=== PATIENT | female | born 1975 | race Caucasian/White ===

== ENCOUNTER → 2016-09-28 | Outpatient (CLI) | payer OTHER ==
[~2016-09-28] MED LIST: ATOR1TAB19 PO; BENA25CA2 PO; LEVO88TA3 PO; LEXA1TAB PO; PRED10TA PO; PREV30CA11 PO; RIZA10TA2 PO; VALI2TAB PO
[2016-09-28 20:22] LABS: BASO % 0.5 % (0.0-1.0); EOS # 0.2 K/mm3 (0.0-0.50); EOS % 2.1 % (0.0-3.0); LYMPH # 3.1 K/mm3 (1.5-4.5); LYMPH % 38.7 % (24.0-44.0); MEAN CORPUSCULAR HEMOGLOBIN 26.5 pg (27.0-33.0); MEAN CORPUSCULAR HGB CONC 31.1 g/dl (32.0-36.5); MONO # 0.4 K/mm3 (0.0-0.8); MONO % 5.1 % (0.0-5.0); NEUTROPHILS # 4.1 K/mm3 (1.8-7.7); NEUTROPHILS % 52.2 % (36.0-66.0); RED CELL DISTRIBUTION WIDTH 14.8 % (11.5-14.5); WHITE BLOOD COUNT 7.8 K/mm3 (4.0-10.0)
== END ==
LOC: M WUC 15:50
PROVIDERS: ATTEND Internal Medicine
DX: J84.9 Interstitial pulmonary disease, unspecified (principal)

== ENCOUNTER → 2017-02-09 | Outpatient (CLI) | payer OTHER ==
[~2017-02-09] MED LIST changes: +E-Z-GAS II EFFERVESCENT PACKET (SODIUM BICARB./CITRIC ACID/SIMETHICONE) As Ordered ONE; +E-Z-HD 98% w/w 340GM SUSP BTL As Ordered ONE; +E-Z-PAQUE 96% w/w SUSP 176GM BTL As Ordered ONE; +PREV1CAP PO; -PREV30CA11 PO
--- NOTE | 2017-02-09 19:41 | REP ---
Esophagram The procedure was performed under the direct supervision of Dr. Hammond. The images were reviewed with Dr. Hammond. A single view PA chest x-ray is submitted as a billing spec film. There is no change compared to a previous chest x-ray performed on 08/07/2015. Liquid barium and gas producing granules were given in the erect position as well as liquid barium in the prone oblique positions in order to perform a double contrast esophagram examination. The oral and pharyngeal stages of deglutition are unremarkable. Esophageal transport is prompt and efficient and there is no esophagitis, stricture, or mucosal ring. Is a sliding-type hiatal hernia present. Gastroesophageal reflux is not demonstrated on this examination. Impression: There is a sliding type hiatal hernia present. Otherwise unremarkable double contrast esophagram examination. One minute and 30 seconds of fluoro time was utilized for this procedure. Reviewed by ERMELINDA Berkowitz 02/09/2017 04:10 PSigned by Lars Hammond MD 02/09/2017 07:31 P
== END ==
LOC: M RAD 08:13
PROVIDERS: ATTEND Physician Assistant
DX: R13.10 Dysphagia, unspecified (principal); M94.1 Relapsing polychondritis; K44.9 Diaphragmatic hernia without obstruction or gangrene

== ENCOUNTER 2017-03-26 13:05 | Emergency (ER) | payer OTHER ==
[~2017-03-26] VITALS: Ht 154.9 cm; Wt 54.5 kg
[~2017-03-26 13:05] MED LIST changes: -E-Z-GAS II EFFERVESCENT PACKET (SODIUM BICARB./CITRIC ACID/SIMETHICONE) As Ordered ONE; -E-Z-HD 98% w/w 340GM SUSP BTL As Ordered ONE; -E-Z-PAQUE 96% w/w SUSP 176GM BTL As Ordered ONE
[2017-03-26] MEDS ORDERED: REXU1TAB PO (13:26)
[2017-03-26] MEDS ORDERED: RIZA10TA4 PO (13:26)
[2017-03-26] MEDS ORDERED: NS 1,000 ML IV ONE (15:30)
[2017-03-26 16:03] LABS: BASO # 0.1 10^3/uL (0.0-0.2); BASO % 0.4 % (0.0-1.0); EOS # 0.1 10^3/uL (0.0-0.50); EOS % 1.1 % (0.0-3.0); IMMATURE GRANULOCYTE % 0.2 % (0-0); LYMPH # 3.9 10^3/uL (1.5-4.5); LYMPH % 31.3 % (24.0-44.0); MEAN CORPUSCULAR HEMOGLOBIN 26.5 pg (27.0-33.0); MEAN CORPUSCULAR HGB CONC 30.9 g/dl (32.0-36.5); MEAN CORPUSCULAR VOLUME 85.8 fl (80.0-96.0); MONO # 0.7 10^3/uL (0.0-0.8); MONO % 5.3 % (0.0-5.0); NEUTROPHILS # 7.6 10^3/uL (1.8-7.7); NEUTROPHILS % 61.7 % (36.0-66.0); PLATELET COUNT, AUTOMATED 337 10^3/uL (150-450); RED CELL DISTRIBUTION WIDTH 15.3 % (11.5-14.5); WHITE BLOOD COUNT 12.3 10^3/uL (4.0-10.0)
--- NOTE | 2017-03-26 16:06 | REP ---
Clinical: Dysphasia . Comparison: 08/07/2015 . Technique: PA and lateral. Findings: The mediastinum and cardiac silhouette are normal. The lung hein are clear and without acute consolidation, effusion, or pneumothorax. The skeletal structures are intact and normal. Impression: 1. No acute cardiopulmonary process. Signed by Amanuel Ojeda MD 03/26/2017 03:57 P
[2017-03-26] MEDS ORDERED: DIAZ2TAB PO (16:09)
[2017-03-26] MEDS ORDERED: VENTAER INH (16:09)
[2017-03-26] MEDS ORDERED: PRED1TABL PO (16:09)
[2017-03-26 16:27] LABS: ALBUMIN 4.9 GM/DL (3.2-5.2); ALBUMIN/GLOBULIN RATIO 1.29 (1.00-1.93); BILIRUBIN,DIRECT 0.1 MG/DL (0.0-0.2); BILIRUBIN,TOTAL 0.4 MG/DL (0.2-1.0); CREATININE FOR GFR 1.22 MG/DL (0.55-1.02); POTASSIUM SERUM 4.7 MEQ/L (3.5-5.1); TOTAL PROTEIN 8.7 GM/DL (6.4-8.2)
--- NOTE | 2017-03-26 17:54 | ED PDOC ---
Post-Departure Follow-Up SPOKE WITH BOTH DR. STRINGER (GI) AND DR. MARTINEZ (HOSPITALIST) REGARDING POSSIBLE ADMISSION FOR THIS PT. DR. MARTINEZ CAME TO EVALUATE PT IN THE ED AT THIS TIME AND SPOKE WITH PT REGARDING SYMPTOMS AND POTENTIAL TREATMENTS. PT STATING SHE PREFERS TO FOLLOW UP WITH THE GROUP IN [place], [place], WITH WHICH SHE HAS AN APPOINTMENT WITH ON March. STATES SHE IS ESTABLISHING WITH THEM PER REQUEST OF HER GI SPECIALIST, DR VIRGEN IN [place]. ADVISED THAT PT IS STABLE AND CAN DRIVE TO [facility] AND BE SEEN IN THEIR ED FOR FURTHER WORK UP FOR THIS CHRONIC ISSUE. PT IN NAD AT THIS TIME AND IS IN UNDERSTANDING AND AGREEMENT WITH TX PLAN. THIS NANOELECTRONICS ENGINEER CALLED AND SPOKE WITH THE ADULT TRIAGE NURSE IN THEIR ED AND MADE THEM AWARE OF THE SITUATION. PROVIDED THEM WITH [phone] PHONE NUMBER TO CALL THIS DEPT BACK WITH ANY QUESTIONS WHEN PT ARRIVES. MARGY KING PA-C Mar 26, 2017 17:54
[2017-03-26 18:08] VITALS: BP 117/69
== END 2017-03-26 18:12 | disposition home or self-care (01) ==
LOC: M ED 13:05
DX: E86.0 Dehydration (principal); R13.10 Dysphagia, unspecified; M94.9 Disorder of cartilage, unspecified; E03.9 Hypothyroidism, unspecified; F41.9 Anxiety disorder, unspecified; F32.9 Major depressive disorder, single episode, unspecified; Z88.5 Allergy status to narcotic agent; Z88.4 Allergy status to anesthetic agent; Z88.8 Allergy status to other drugs, medicaments and biological substances; F17.210 Nicotine dependence, cigarettes, uncomplicated; Z79.51 Long term (current) use of inhaled steroids; Z79.899 Other long term (current) drug therapy; Z79.52 Long term (current) use of systemic steroids

== ENCOUNTER → 2017-05-13 | Outpatient (CLI) | payer OTHER ==
[2017-05-13 16:59] LABS: BASO % 0.2 % (0.0-1.0); EOS # 0.1 10^3/uL (0.0-0.50); EOS % 1.3 % (0.0-3.0); HEMATOCRIT 44.3 % (36.0-47.0); HEMOGLOBIN 13.8 g/dl (12.0-16.0); IMMATURE GRANULOCYTE % 0.3 % (0-0); LYMPH % 17.8 % (24.0-44.0); MEAN CORPUSCULAR HEMOGLOBIN 27.9 pg (27.0-33.0); MEAN CORPUSCULAR HGB CONC 31.2 g/dl (32.0-36.5); MEAN CORPUSCULAR VOLUME 89.5 fl (80.0-96.0); MONO # 0.4 10^3/uL (0.0-0.8); MONO % 3.8 % (0.0-5.0); NEUTROPHILS # 8.4 10^3/uL (1.8-7.7); NEUTROPHILS % 76.6 % (36.0-66.0); PLATELET COUNT, AUTOMATED 327 10^3/uL (150-450); RED BLOOD COUNT 4.95 10^6/uL (4.00-5.40); RED CELL DISTRIBUTION WIDTH 16.6 % (11.5-14.5)
[2017-05-13 17:52] LABS: ERYTHROCYTE SEDIMENTATION RATE 36 mm/hr (0-20)
[2017-05-13 18:14] LABS: ALBUMIN 4.3 GM/DL (3.2-5.2); ALKALINE PHOSPHATASE 111 U/L (45-117); ALT/SGPT 70 U/L (12-78); ANION GAP 6 MEQ/L (8-16); AST/SGOT 39 U/L (7-37); BILIRUBIN,TOTAL 0.3 MG/DL (0.2-1.0); BLOOD UREA NITROGEN 16 MG/DL (7-18); C REACTIVE PROTEIN QUANTITATIV < 0.30 MG/DL (0.00-0.30); CALCIUM LEVEL 10.3 MG/DL (8.5-10.1); CARBON DIOXIDE LEVEL 29 MEQ/L (21-32); CHLORIDE LEVEL 103 MEQ/L (98-107); CPK CREATINE PHOSPHOKINASE 31 U/L (26-192); GLOMERULAR FILTRATION RATE > 60.0 (>58); GLUCOSE, FASTING 85 MG/DL (70-105); POTASSIUM SERUM 4.8 MEQ/L (3.5-5.1); SODIUM LEVEL 138 MEQ/L (136-145); TOTAL PROTEIN 8.2 GM/DL (6.4-8.2)
== END ==
LOC: M WUC 11:58
DX: M94.1 Relapsing polychondritis (principal); Z79.899 Other long term (current) drug therapy
CPT/HCPCS: 82550

== ENCOUNTER 2017-06-18 10:48 | Outpatient (RCR) | payer OTHER | END 2017-06-23 | LOC: M ST 10:48 | DX: Z51.89 Encounter for other specified aftercare (principal); R13.10 Dysphagia, unspecified ==

== ENCOUNTER 2017-06-20 14:02 | Emergency (ER) | payer OTHER ==
[2017-06-20] MEDS ORDERED: HYDROmorphone 2 MG TAB XX (15:15)
[2017-06-20 15:38] LABS: BASO % 0.4 % (0.0-1.0); EOS # 0.3 10^3/uL (0.0-0.50); EOS % 2.9 % (0.0-3.0); HEMATOCRIT 42.9 % (36.0-47.0); HEMOGLOBIN 14.4 g/dl (12.0-16.0); IMMATURE GRANULOCYTE % 0.3 % (0-3.0); LYMPH # 2.7 10^3/uL (1.5-4.5); LYMPH % 24.1 % (24.0-44.0); MEAN CORPUSCULAR HEMOGLOBIN 29.8 pg (27.0-33.0); MEAN CORPUSCULAR HGB CONC 33.6 g/dl (32.0-36.5); MEAN CORPUSCULAR VOLUME 88.6 fl (80.0-96.0); MONO # 0.7 10^3/uL (0.0-0.8); MONO % 6.2 % (0.0-5.0); NEUTROPHILS # 7.4 10^3/uL (1.8-7.7); NEUTROPHILS % 66.1 % (36.0-66.0); PLATELET COUNT, AUTOMATED 265 10^3/uL (150-450); RED BLOOD COUNT 4.84 10^6/uL (4.00-5.40); WHITE BLOOD COUNT 11.2 10^3/uL (4.0-10.0)
[2017-06-20] MEDS: NS 1,000 ML IV (15:43)
[2017-06-20] MEDS: HYDROmorphone HCL 1 MG/ML SYRINGE (J1170) IV ×2 (15:43→18:25)
[2017-06-20 16:01] LABS: ALBUMIN 4.1 GM/DL (3.2-5.2); ALBUMIN/GLOBULIN RATIO 1.24 (1.00-1.93); ALKALINE PHOSPHATASE 103 U/L (45-117); ALT/SGPT 79 U/L (12-78); AMYLASE 131 U/L (25-115); ANION GAP 8 MEQ/L (8-16); AST/SGOT 55 U/L (7-37); BILIRUBIN,DIRECT 0.1 MG/DL (0.0-0.2); BILIRUBIN,TOTAL 0.4 MG/DL (0.2-1.0); BLOOD UREA NITROGEN 17 MG/DL (7-18); CALCIUM LEVEL 9.7 MG/DL (8.5-10.1); CARBON DIOXIDE LEVEL 28 MEQ/L (21-32); CHLORIDE LEVEL 103 MEQ/L (98-107); CREATININE FOR GFR 0.75 MG/DL (0.55-1.30); GLOMERULAR FILTRATION RATE > 60.0 (>58); GLUCOSE, FASTING 86 MG/DL (70-100); LIPASE 360 U/L (73-393); POTASSIUM SERUM 4.3 MEQ/L (3.5-5.1); SODIUM LEVEL 139 MEQ/L (136-145); TOTAL PROTEIN 7.4 GM/DL (6.4-8.2)
[2017-06-20] MEDS ORDERED: ISOVUE-370 76% 100ML VIAL (Q9967) As Ordered (16:07)
[2017-06-20] MEDS: ONDANSETRON 4MG/2ML VIAL (J2405) IV (18:25)
[2017-06-20 18:44] LABS: KETONE, URINE AUTO RFX NEGATIVE (NEGATIVE); LEUKOCYTE ESTERASE UR AUTO RFX NEGATIVE (NEGATIVE); NITRITE, URINE AUTO RFX NEGATIVE (NEGATIVE); RBC, URINE AUTO RFX 1 /HPF (0-3); SQUAM EPITHELIAL CELL UR AURFX 2 /HPF (0-6); WBC, URINE AUTO RFX 1 /HPF (0-3)
[2017-06-20] MEDS: ONDANSETRON 4 MG ORAL DISINTEGRATING TAB (S0181) PO (19:21)
[2017-06-20] MEDS: HYDROmorphone 2 MG TAB PO (19:21)
[2017-06-20 20:20] LABS: SPECIFIC GRAVITY UR AUTO RFX >1.060 (1.002-1.035)
== END 2017-06-20 19:32 | disposition home or self-care (01) ==
LOC: M ED 14:02
DX: R10.9 Unspecified abdominal pain (principal); R07.9 Chest pain, unspecified; K75.9 Inflammatory liver disease, unspecified; D72.829 Elevated white blood cell count, unspecified; R11.2 Nausea with vomiting, unspecified; R94.31 Abnormal electrocardiogram [ECG] [EKG]; R47.02 Dysphasia; R94.5 Abnormal results of liver function studies; K59.8 Other specified functional intestinal disorders; Z93.2 Ileostomy status; Z93.1 Gastrostomy status; Z79.899 Other long term (current) drug therapy; Z88.5 Allergy status to narcotic agent; Z88.8 Allergy status to other drugs, medicaments and biological substances
CPT/HCPCS: J1170

== ENCOUNTER 2017-06-29 13:46 | Emergency (ER) | payer OTHER ==
[2017-06-29] MEDS: HYDROmorphone HCL 1 MG/ML SYRINGE (J1170) IV ×2 (15:58→16:58)
[2017-06-29] MEDS: ONDANSETRON 4MG/2ML VIAL (J2405) IV (15:58)
[2017-06-29] MEDS: NS 1,000 ML IV (15:58)
[2017-06-29 16:08] LABS: BASO % 0.3 % (0.0-1.0); EOS # 0.3 10^3/uL (0.0-0.50); EOS % 3.3 % (0.0-3.0); HEMATOCRIT 43.5 % (36.0-47.0); HEMOGLOBIN 14.5 g/dl (12.0-16.0); IMMATURE GRANULOCYTE % 0.2 % (0-3.0); LYMPH # 2.6 10^3/uL (1.5-4.5); LYMPH % 29.6 % (24.0-44.0); MEAN CORPUSCULAR HEMOGLOBIN 30.5 pg (27.0-33.0); MEAN CORPUSCULAR HGB CONC 33.3 g/dl (32.0-36.5); MEAN CORPUSCULAR VOLUME 91.4 fl (80.0-96.0); MONO # 0.6 10^3/uL (0.0-0.8); MONO % 6.5 % (0.0-5.0); NEUTROPHILS # 5.3 10^3/uL (1.8-7.7); NEUTROPHILS % 60.1 % (36.0-66.0); PLATELET COUNT, AUTOMATED 268 10^3/uL (150-450); RED BLOOD COUNT 4.76 10^6/uL (4.00-5.40); RED CELL DISTRIBUTION WIDTH 14.6 % (11.5-14.5); WHITE BLOOD COUNT 8.9 10^3/uL (4.0-10.0)
[2017-06-29 16:26] LABS: CONTROL LINE HCG INT CTR LINE PRESENT; HCG, SERUM QUALITATIVE NEGATIVE (NEGATIVE)
[2017-06-29 16:30] LABS: ALBUMIN/GLOBULIN RATIO 1.08 (1.00-1.93); ALKALINE PHOSPHATASE 113 U/L (45-117); ALT/SGPT 89 U/L (12-78); AMYLASE 119 U/L (25-115); ANION GAP 6 MEQ/L (8-16); AST/SGOT 48 U/L (7-37); BILIRUBIN,DIRECT 0.1 MG/DL (0.0-0.2); BILIRUBIN,TOTAL 0.4 MG/DL (0.2-1.0); BLOOD UREA NITROGEN 11 MG/DL (7-18); CALCIUM LEVEL 9.8 MG/DL (8.5-10.1); CARBON DIOXIDE LEVEL 29 MEQ/L (21-32); CHLORIDE LEVEL 105 MEQ/L (98-107); CREATININE FOR GFR 0.71 MG/DL (0.55-1.30); GLOMERULAR FILTRATION RATE > 60.0 (>58); GLUCOSE, FASTING 87 MG/DL (70-100); LIPASE 296 U/L (73-393); POTASSIUM SERUM 4.2 MEQ/L (3.5-5.1); SODIUM LEVEL 140 MEQ/L (136-145); TOTAL PROTEIN 7.7 GM/DL (6.4-8.2)
[2017-06-29 16:31] LABS: LACTIC ACID SEPSIS PROTOCOL 1.8 MMOL/L (0.4-2.0)
[2017-06-29] MEDS ORDERED: ISOVUE-370 76% 100ML VIAL (Q9967) As Ordered (16:35)
[2017-06-29] MEDS: GASTROGRAFIN SOLUTION 30ML PO ×2 (16:49→17:15)
== END 2017-06-29 18:50 | disposition home or self-care (01) ==
LOC: M ED 13:46
DX: B86 Scabies (principal); R10.9 Unspecified abdominal pain; R11.0 Nausea; R19.7 Diarrhea, unspecified; Z93.1 Gastrostomy status; F32.9 Major depressive disorder, single episode, unspecified; K21.9 Gastro-esophageal reflux disease without esophagitis; K58.9 Irritable bowel syndrome, unspecified; R13.10 Dysphagia, unspecified; Z79.899 Other long term (current) drug therapy; Z88.5 Allergy status to narcotic agent; Z88.8 Allergy status to other drugs, medicaments and biological substances; Z88.4 Allergy status to anesthetic agent
CPT/HCPCS: J1170

== ENCOUNTER → 2017-07-05 | Outpatient (CLI) | payer OTHER ==
[2017-07-05 16:23] LABS: CPK CREATINE PHOSPHOKINASE 42 U/L (26-192); CREATININE FOR GFR 0.88 MG/DL (0.55-1.30); GLOMERULAR FILTRATION RATE > 60.0 (>58)
[2017-07-05 16:23] LABS: BLOOD UREA NITROGEN 14 MG/DL (7-18)
== END ==
LOC: M WUC 14:46
DX: R13.10 Dysphagia, unspecified (principal); G70.01 Myasthenia gravis with (acute) exacerbation; R19.7 Diarrhea, unspecified
CPT/HCPCS: 82550

== ENCOUNTER 2017-07-09 15:52 | Outpatient (RCR) | payer OTHER | END 2017-07-24 | LOC: M ST 15:52 | DX: Z51.89 Encounter for other specified aftercare (principal); R13.10 Dysphagia, unspecified ==

== ENCOUNTER → 2017-12-29 | Outpatient (CLI) | payer OTHER ==
[2017-12-29 15:32] LABS: ALBUMIN 4.2 GM/DL (3.2-5.2); ALBUMIN/GLOBULIN RATIO 1.24 (1.00-1.93); ALKALINE PHOSPHATASE 80 U/L (45-117); ALT/SGPT 91 U/L (12-78); AST/SGOT 47 U/L (7-37); BILIRUBIN,DIRECT 0.2 MG/DL (0.0-0.2); BILIRUBIN,TOTAL 0.4 MG/DL (0.2-1.0); TOTAL PROTEIN 7.6 GM/DL (6.4-8.2)
== END ==
LOC: M WUC 12:22
DX: K31.84 Gastroparesis (principal); K21.9 Gastro-esophageal reflux disease without esophagitis; I95.9 Hypotension, unspecified; R94.5 Abnormal results of liver function studies
CPT/HCPCS: 80076

== ENCOUNTER → 2017-12-29 | Outpatient (CLI) | payer OTHER ==
[2017-12-29 15:26] LABS: FREE T4 0.78 NG/DL (0.76-1.46)
== END ==
LOC: M WUC 12:25
DX: E03.9 Hypothyroidism, unspecified (principal)
CPT/HCPCS: 84443

== ENCOUNTER → 2018-01-04 | Outpatient (CLI) | payer OTHER ==
[2018-01-04 17:07] LABS: ALBUMIN 3.8 GM/DL (3.2-5.2); ALKALINE PHOSPHATASE 87 U/L (45-117); ALT/SGPT 58 U/L (12-78); ANION GAP 7 MEQ/L (8-16); AST/SGOT 42 U/L (7-37); BILIRUBIN,TOTAL 0.4 MG/DL (0.2-1.0); BLOOD UREA NITROGEN 17 MG/DL (7-18); CALCIUM LEVEL 9.7 MG/DL (8.5-10.1); CARBON DIOXIDE LEVEL 27 MEQ/L (21-32); CHLORIDE LEVEL 104 MEQ/L (98-107); CREATININE FOR GFR 1.41 MG/DL (0.55-1.30); GLOMERULAR FILTRATION RATE 43.1 (>58); GLUCOSE, FASTING 100 MG/DL (70-100); POTASSIUM SERUM 5.6 MEQ/L (3.5-5.1); SODIUM LEVEL 138 MEQ/L (136-145); TOTAL PROTEIN 7.3 GM/DL (6.4-8.2)
[2018-01-04 20:08] LABS: ALBUMIN/GLOBULIN RATIO 1.09 (1.00-1.93)
== END ==
LOC: M WUC 16:06
DX: Z79.899 Other long term (current) drug therapy (principal)
CPT/HCPCS: 80053

== ENCOUNTER → 2018-01-07 | Outpatient (CLI) | payer OTHER ==
[2018-01-07 20:32] LABS: ALBUMIN 3.9 GM/DL (3.2-5.2); ALBUMIN/GLOBULIN RATIO 1.26 (1.00-1.93); ALKALINE PHOSPHATASE 74 U/L (45-117); ALT/SGPT 69 U/L (12-78); ANION GAP 8 MEQ/L (8-16); AST/SGOT 47 U/L (7-37); BILIRUBIN,TOTAL 0.4 MG/DL (0.2-1.0); BLOOD UREA NITROGEN 14 MG/DL (7-18); CALCIUM LEVEL 9.6 MG/DL (8.5-10.1); CARBON DIOXIDE LEVEL 24 MEQ/L (21-32); CHLORIDE LEVEL 105 MEQ/L (98-107); CREATININE FOR GFR 1.25 MG/DL (0.55-1.30); GLOMERULAR FILTRATION RATE 49.6 (>58); GLUCOSE, FASTING 92 MG/DL (70-100); POTASSIUM SERUM 4.9 MEQ/L (3.5-5.1); SODIUM LEVEL 137 MEQ/L (136-145)
== END ==
LOC: M WUC 16:54
DX: Z51.81 Encounter for therapeutic drug level monitoring (principal); Z79.899 Other long term (current) drug therapy
CPT/HCPCS: 80053

== ENCOUNTER → 2018-01-07 | Outpatient (CLI) | payer OTHER ==
[2018-01-07 22:05] LABS: ANION GAP 9 MEQ/L (8-16); BLOOD UREA NITROGEN 15 MG/DL (7-18); CALCIUM LEVEL 9.3 MG/DL (8.5-10.1); CARBON DIOXIDE LEVEL 22 MEQ/L (21-32); CHLORIDE LEVEL 104 MEQ/L (98-107); CREATININE FOR GFR 1.27 MG/DL (0.55-1.30); GLOMERULAR FILTRATION RATE 48.7 (>58); GLUCOSE, FASTING 91 MG/DL (70-100); POTASSIUM SERUM 4.8 MEQ/L (3.5-5.1); SODIUM LEVEL 135 MEQ/L (136-145)
[2018-01-07 22:18] LABS: FOLATE 10.8 NG/ML (>5.4)
[2018-01-13 08:06] LABS: VITAMIN B1 LEVEL WHOLE BLOOD 145.9 nmol/L (66.5-200.0)
== END ==
LOC: M WUC 16:58
DX: K31.84 Gastroparesis (principal); E55.9 Vitamin D deficiency, unspecified
CPT/HCPCS: 82746

== ENCOUNTER → 2018-02-16 | Outpatient (CLI) | payer OTHER | LOC: M RAD 13:44 | DX: N18.3 Chronic kidney disease, stage 3 (moderate) (principal); Z93.2 Ileostomy status | CPT/HCPCS: 76775 ==

== ENCOUNTER → 2018-02-16 | Outpatient (CLI) | payer OTHER ==
[2018-02-16 14:12] LABS: BASO % 0.4 % (0.0-1.0); EOS # 0.1 10^3/uL (0.0-0.50); EOS % 0.5 % (0.0-3.0); HEMATOCRIT 39.9 % (36.0-47.0); HEMOGLOBIN 13.5 g/dl (12.0-15.5); IMMATURE GRANULOCYTE # 0.1 10^3/uL (0-0); IMMATURE GRANULOCYTE % 0.5 % (0-3.0); LYMPH # 1.6 10^3/uL (1.5-4.5); LYMPH % 15.3 % (24.0-44.0); MEAN CORPUSCULAR HEMOGLOBIN 34.4 pg (27.0-33.0); MEAN CORPUSCULAR HGB CONC 33.8 g/dl (32.0-36.5); MEAN CORPUSCULAR VOLUME 101.8 fl (80.0-96.0); MONO # 0.4 10^3/uL (0.0-0.8); MONO % 3.9 % (0.0-5.0); NEUTROPHILS # 8.1 10^3/uL (1.8-7.7); NEUTROPHILS % 79.4 % (36.0-66.0); PLATELET COUNT, AUTOMATED 371 10^3/uL (150-450); RED BLOOD COUNT 3.92 10^6/uL (4.00-5.40); RED CELL DISTRIBUTION WIDTH 15.1 % (11.5-14.5); WHITE BLOOD COUNT 10.1 10^3/uL (4.0-10.0)
[2018-02-16 15:27] LABS: ALBUMIN 3.7 GM/DL (3.2-5.2); ALBUMIN/GLOBULIN RATIO 1.28 (1.00-1.93); ALKALINE PHOSPHATASE 73 U/L (45-117); ALT/SGPT 68 U/L (12-78); ANION GAP 8 MEQ/L (8-16); AST/SGOT 50 U/L (7-37); BILIRUBIN,TOTAL 0.5 MG/DL (0.2-1.0); BLOOD UREA NITROGEN 14 MG/DL (7-18); C REACTIVE PROTEIN QUANTITATIV < 0.30 MG/DL (0.00-0.30); CALCIUM LEVEL 9.5 MG/DL (8.5-10.1); CARBON DIOXIDE LEVEL 22 MEQ/L (21-32); CHLORIDE LEVEL 110 MEQ/L (98-107); CREATININE FOR GFR 1.26 MG/DL (0.55-1.30); GLOMERULAR FILTRATION RATE 49.1 (>58); GLUCOSE, FASTING 132 MG/DL (70-100); POTASSIUM SERUM 4.5 MEQ/L (3.5-5.1); SODIUM LEVEL 140 MEQ/L (136-145); TOTAL PROTEIN 6.6 GM/DL (6.4-8.2)
== END ==
LOC: M LAB 13:47
DX: M94.1 Relapsing polychondritis (principal)
CPT/HCPCS: 80053

== ENCOUNTER → 2018-05-10 | Outpatient (CLI) | payer OTHER ==
[~2018-05-10] MED LIST changes: +DIAZ2TAB PO; +DILA2TAB6 PO; +ELIM5CRE2 TOP; +FAMO20TA PO; +HYDR1SOL PO; +MYLASUS16 PO; +PRED1TABL PO; +REXU1TAB PO; +RIZA10TA4 PO; +VENTAER INH
[2018-05-10 13:07] LABS: CALCIUM LEVEL 9.6 MG/DL (8.5-10.1); CREATININE FOR GFR 1.34 MG/DL (0.55-1.30); GLOMERULAR FILTRATION RATE 45.5 (>58); POTASSIUM SERUM 5.1 MEQ/L (3.5-5.1)
== END ==
LOC: M LAB 12:13
PROVIDERS: ATTEND Internal Medicine
DX: E87.5 Hyperkalemia (principal)

== ENCOUNTER → 2018-06-21 | Outpatient (CLI) | payer OTHER ==
[2018-06-21 19:33] LABS: BASO % 0.4 % (0.0-1.0); EOS % 0.1 % (0.0-3.0); HEMATOCRIT 43.4 % (36.0-47.0); HEMOGLOBIN 14.5 g/dl (12.0-15.5); LYMPH # 2.2 10^3/uL (1.5-4.5); LYMPH % 30.3 % (24.0-44.0); MEAN CORPUSCULAR HEMOGLOBIN 33.2 pg (27.0-33.0); MEAN CORPUSCULAR HGB CONC 33.4 g/dl (32.0-36.5); MEAN CORPUSCULAR VOLUME 99.3 fl (80.0-96.0); MONO # 0.4 10^3/uL (0.0-0.8); MONO % 4.9 % (0.0-5.0); NEUTROPHILS # 4.7 10^3/uL (1.8-7.7); PLATELET COUNT, AUTOMATED 293 10^3/uL (150-450); RED BLOOD COUNT 4.37 10^6/uL (4.00-5.40); WHITE BLOOD COUNT 7.4 10^3/uL (4.0-10.0)
[2018-06-21 20:11] LABS: ALBUMIN 4.3 GM/DL (3.2-5.2); ALT/SGPT 30 U/L (12-78); BILIRUBIN,TOTAL 0.3 MG/DL (0.2-1.0); BLOOD UREA NITROGEN 19 MG/DL (7-18); C REACTIVE PROTEIN QUANTITATIV < 0.30 MG/DL (0.00-0.30); CALCIUM LEVEL 9.5 MG/DL (8.5-10.1); CARBON DIOXIDE LEVEL 24 MEQ/L (21-32); CHLORIDE LEVEL 106 MEQ/L (98-107); CREATININE FOR GFR 1.21 MG/DL (0.55-1.30); GLOMERULAR FILTRATION RATE 51.2 (>58); GLUCOSE, FASTING 100 MG/DL (70-100); SODIUM LEVEL 137 MEQ/L (136-145); TOTAL PROTEIN 7.6 GM/DL (6.4-8.2)
== END ==
LOC: M WUC 15:34
PROVIDERS: ATTEND Internal Medicine
DX: M94.1 Relapsing polychondritis (principal)

== ENCOUNTER → 2018-07-06 | Outpatient (REF) | payer OTHER ==
[2018-07-06 13:53] LABS: INFLUENZA A AMPLIFICATION NEGATIVE (NEGATIVE); INFLUENZA B AMPLIFICATION NEGATIVE (NEGATIVE)
== END ==
LOC: M LAB REF 13:04
PROVIDERS: ATTEND Physician Assistant
DX: J11.1 Influenza due to unidentified influenza virus with other respiratory manifestations (principal)

== ENCOUNTER 2018-09-28 23:00 | Emergency (ER) | payer OTHER ==
[~2018-09-28] VITALS: Ht 154.9 cm; Wt 40.9 kg
[~2018-09-28 23:00] MED LIST changes: +PRED-351 PO; -PRED10TA PO
[2018-09-28] MEDS ORDERED: GASTROGRAFIN SOLUTION 30ML (Q9963) As Ordered ONE (23:29)
[2018-09-28] MEDS ORDERED: GASTROGRAFIN SOLUTION 30ML (Q9963) FT ONE (23:30)
[2018-09-29 00:28] VITALS: BP 110/62
--- NOTE | 2018-09-29 00:41 | REP ---
Clinical: Feeding tube placement. Technique: Single supine view of the abdomen and pelvis after the administration of gastrographin the feeding tube. Findings: Contrast instilled via a feeding tube properly outlines the gastric mucosa without evidence for extravasation. Bowel gas pattern is nonspecific. Colonoscopy overlies the right mid abdomen. No organomegaly. Skeletal structures are intact. No abnormal calcifications appreciated. Impression: Feeding tube in satisfactory position. Nonspecific bowel gas pattern. Electronically Signed by Amanuel Ojeda MD 09/29/2018 12:33 A
== END 2018-09-29 00:32 | disposition home or self-care (01) ==
LOC: M ED 23:00
DX: K94.20 Gastrostomy complication, unspecified (principal); F33.9 Major depressive disorder, recurrent, unspecified; F41.9 Anxiety disorder, unspecified; E03.9 Hypothyroidism, unspecified; K21.9 Gastro-esophageal reflux disease without esophagitis; K58.9 Irritable bowel syndrome, unspecified; J84.9 Interstitial pulmonary disease, unspecified; Z79.899 Other long term (current) drug therapy; Z79.890 Hormone replacement therapy; Z88.5 Allergy status to narcotic agent

== ENCOUNTER → 2018-11-11 | Outpatient (CLI) | payer OTHER ==
[~2018-11-11] MED LIST changes: +E-Z-PAQUE 96% w/w SUSP 176GM BTL As Ordered ONE
--- NOTE | 2018-11-14 07:59 | REP ---
Examination Requested: SBFT Reason For Exam: Intussusception, nausea Small Bowel Follow Through The procedure was performed by ERMELINDA Morales, under the direct supervision of Dr. Aguirre. The images were reviewed with Dr. Aguirre. The scout professional sports film shows no organomegaly or pathological masses. The intestinal gas pattern appears normal. The barium was administered and the barium column was followed through the small bowel to the ileostomy. Small bowel transit time was approximately 100 minutes. During fluoroscopy gentle palpation shows all loops are freely mobile and pliable. There are no fixed or angulated loops. The small bowel mucosal pattern is normal in course and caliber. There is no transition to suggest a partial small-bowel obstruction or stricture. Impression: 1. Unremarkable small bowel follow-through to the level of the stoma. 0.5 minutes of fluoroscopy time was utilized for this procedure. Some fluoroscopic images are performed with last image hold technology. These images require no additional radiation. Reviewed by ERMELINDA Mohamud 11/11/2018 04:53 P Electronically Signed by Lars Aguirre MD 11/14/2018 07:51 A
== END ==
LOC: M RAD 08:12
PROVIDERS: ATTEND Nurse Practitioner
DX: K56.1 Intussusception (principal)

== ENCOUNTER → 2019-01-13 | Outpatient (CLI) | payer OTHER ==
[~2019-01-13] MED LIST changes: -E-Z-PAQUE 96% w/w SUSP 176GM BTL As Ordered ONE
[2019-01-13 13:43] LABS: BASO % 0.7 % (0.0-1.0); EOS # 0.2 10^3/uL (0.0-0.5); EOS % 4.9 % (0.0-3.0); HEMATOCRIT 30.1 % (36.0-47.0); HEMOGLOBIN 9.8 g/dl (12.0-15.5); LYMPH # 1.2 10^3/uL (1.5-5.0); LYMPH % 25.8 % (24.0-44.0); MEAN CORPUSCULAR HEMOGLOBIN 33.8 pg (27.0-33.0); MEAN CORPUSCULAR HGB CONC 32.6 g/dl (32.0-36.5); MEAN CORPUSCULAR VOLUME 103.8 fl (80.0-96.0); MONO # 0.5 10^3/uL (0.0-0.8); MONO % 10.6 % (0.0-5.0); NEUTROPHILS # 2.6 10^3/uL (1.5-8.5); NEUTROPHILS % 57.6 % (36.0-66.0); PLATELET COUNT, AUTOMATED 242 10^3/uL (150-450); WHITE BLOOD COUNT 4.5 10^3/uL (4.0-10.0)
== END ==
LOC: M LAB 13:22
PROVIDERS: ATTEND Internal Medicine
DX: D72.819 Decreased white blood cell count, unspecified (principal)

== ENCOUNTER → 2019-01-16 | Outpatient (CLI) | payer OTHER ==
[2019-01-16 14:56] LABS: BASO % 0.8 % (0.0-1.0); EOS # 0.2 10^3/uL (0.0-0.5); EOS % 5.6 % (0.0-3.0); HEMATOCRIT 33.6 % (36.0-47.0); HEMOGLOBIN 10.9 g/dl (12.0-15.5); LYMPH # 1.6 10^3/uL (1.5-5.0); LYMPH % 41.1 % (24.0-44.0); MEAN CORPUSCULAR HEMOGLOBIN 34.5 pg (27.0-33.0); MEAN CORPUSCULAR HGB CONC 32.4 g/dl (32.0-36.5); MEAN CORPUSCULAR VOLUME 106.3 fl (80.0-96.0); MONO # 0.3 10^3/uL (0.0-0.8); MONO % 7.6 % (0.0-5.0); NEUTROPHILS # 1.8 10^3/uL (1.5-8.5); NEUTROPHILS % 44.6 % (36.0-66.0); PLATELET COUNT, AUTOMATED 246 10^3/uL (150-450); RED BLOOD COUNT 3.16 10^6/uL (4.00-5.40); WHITE BLOOD COUNT 3.9 10^3/uL (4.0-10.0)
== END ==
LOC: M LAB 14:34
PROVIDERS: ATTEND Internal Medicine
DX: D72.819 Decreased white blood cell count, unspecified (principal)

== ENCOUNTER → 2019-02-07 | Outpatient (CLI) | payer OTHER ==
[~2019-02-07] MED LIST changes: -RIZA10TA4 PO; +RIZA10TA58 PO
[2019-02-07 11:15] LABS: CREATININE FOR GFR 1.17 MG/DL (0.55-1.30); GLOMERULAR FILTRATION RATE 53.3 (>58)
== END ==
LOC: M LAB 09:39
PROVIDERS: ATTEND Psychiatry & Neurology Neurology
DX: I10 Essential (primary) hypertension (principal)

== ENCOUNTER → 2019-05-19 | Outpatient (CLI) | payer OTHER ==
[2019-05-19 13:09] LABS: BASO % 0.5 % (0.0-1.0); EOS # 0.1 10^3/uL (0.0-0.5); EOS % 1.9 % (0.0-3.0); HEMATOCRIT 38.5 % (36.0-47.0); HEMOGLOBIN 12.8 g/dl (12.0-15.5); LYMPH # 1.6 10^3/uL (1.5-5.0); LYMPH % 43.6 % (24.0-44.0); MEAN CORPUSCULAR HEMOGLOBIN 32.8 pg (27.0-33.0); MEAN CORPUSCULAR HGB CONC 33.2 g/dl (32.0-36.5); MEAN CORPUSCULAR VOLUME 98.7 fl (80.0-96.0); MONO # 0.3 10^3/uL (0.0-0.8); MONO % 7.7 % (0.0-5.0); NEUTROPHILS # 1.7 10^3/uL (1.5-8.5); NEUTROPHILS % 46.3 % (36.0-66.0); PLATELET COUNT, AUTOMATED 244 10^3/uL (150-450); WHITE BLOOD COUNT 3.8 10^3/uL (4.0-10.0)
[2019-05-19 13:32] LABS: ALBUMIN 4.5 GM/DL (3.2-5.2); BILIRUBIN,TOTAL 0.4 MG/DL (0.2-1.0); CREATININE FOR GFR 1.34 MG/DL (0.55-1.30); GLOMERULAR FILTRATION RATE 45.3 (>58); POTASSIUM SERUM 4.3 MEQ/L (3.5-5.1); TOTAL PROTEIN 8.3 GM/DL (6.4-8.2)
== END ==
LOC: M LAB 12:21
PROVIDERS: ATTEND Internal Medicine
DX: M94.1 Relapsing polychondritis (principal)

== ENCOUNTER → 2019-05-19 | Outpatient (CLI) | payer OTHER ==
[2019-05-19 13:42] LABS: ALBUMIN 4.5 GM/DL (3.2-5.2); ALT/SGPT 35 U/L (12-78); BILIRUBIN,TOTAL 0.6 MG/DL (0.2-1.0); BLOOD UREA NITROGEN 26 MG/DL (7-18); CALCIUM LEVEL 10.2 MG/DL (8.5-10.1); CARBON DIOXIDE LEVEL 25 MEQ/L (21-32); CHLORIDE LEVEL 109 MEQ/L (98-107); CREATININE FOR GFR 1.34 MG/DL (0.55-1.30); GLOMERULAR FILTRATION RATE 45.3 (>58); GLUCOSE, FASTING 86 MG/DL (70-100); POTASSIUM SERUM 4.1 MEQ/L (3.5-5.1); SODIUM LEVEL 142 MEQ/L (136-145); THYROID STIMULATING HORMONE 0.038 uIU/ML (0.358-3.740); TOTAL PROTEIN 8.3 GM/DL (6.4-8.2)
[2019-05-19 13:43] LABS: FOLATE > 24.0 NG/ML; VITAMIN B12 LEVEL 1080 PG/ML
== END ==
LOC: M LAB 12:15
PROVIDERS: ATTEND Psychiatry & Neurology Neurology
DX: E23.7 Disorder of pituitary gland, unspecified (principal)

== ENCOUNTER 2019-07-10 14:36 | Emergency (ER) | payer OTHER ==
[~2019-07-10] VITALS: Ht 154.9 cm; Wt 41.9 kg
[2019-07-10] MEDS ORDERED: QUET200T2 (14:45)
[2019-07-10] MEDS ORDERED: REXU1TAB2 (14:45)
[2019-07-10] MEDS ORDERED: DRON1CAP3 (14:45)
[2019-07-10] MEDS ORDERED: HYDR50TA70 (14:45)
[2019-07-10] MEDS ORDERED: ALPR1TAB3 (14:45)
[2019-07-10] MEDS ORDERED: AZAT50TA2 (14:45)
[2019-07-10] MEDS ORDERED: GASTROGRAFIN SOLUTION 30ML (Q9963) PO STA (17:21)
[2019-07-10 18:21] VITALS: BP 132/87
--- NOTE | 2019-07-10 19:12 | REP ---
KUB ABDOMEN: KUB film of abdomen performed following injection of diluted Gastrografin into the stomach through the gastrostomy tube. The gastrostomy tube is in the stomach with Gastrografin material seen within the lumen of the stomach. No leakage is seen in the perigastric region. No dilated bowel loops are seen. Metallic clips are seen in the right upper quadrant. Electronically Signed by Lars Hammond MD 07/10/2019 07:19 P
== END 2019-07-10 18:27 | disposition home or self-care (01) ==
LOC: M ED 14:36
DX: K94.29 Other complications of gastrostomy (principal); R13.10 Dysphagia, unspecified; K58.9 Irritable bowel syndrome, unspecified; M94.8X9 Other specified disorders of cartilage, unspecified sites; J84.9 Interstitial pulmonary disease, unspecified; F41.9 Anxiety disorder, unspecified; F32.9 Major depressive disorder, single episode, unspecified; E07.9 Disorder of thyroid, unspecified; D44.3 Neoplasm of uncertain behavior of pituitary gland; Z88.8 Allergy status to other drugs, medicaments and biological substances; Z88.5 Allergy status to narcotic agent; Z88.4 Allergy status to anesthetic agent; Z79.899 Other long term (current) drug therapy
CPT/HCPCS: 43762; 74018; 99283; Q9963

== ENCOUNTER → 2019-07-19 | Outpatient (CLI) | payer OTHER ==
[~2019-07-19] MED LIST changes: +ALPR1TAB3; +AZAT50TA2; +DRON1CAP3; +HYDR50TA70; +QUET200T2; +REXU1TAB2
[2019-07-19 13:56] LABS: BASO % 0.9 % (0.0-1.0); EOS % 1.3 % (0.0-3.0); HEMATOCRIT 39.8 % (36.0-47.0); HEMOGLOBIN 13.4 g/dl (12.0-15.5); LYMPH # 1.2 10^3/uL (1.5-5.0); LYMPH % 36.4 % (24.0-44.0); MEAN CORPUSCULAR HEMOGLOBIN 32.8 pg (27.0-33.0); MEAN CORPUSCULAR HGB CONC 33.7 g/dl (32.0-36.5); MEAN CORPUSCULAR VOLUME 97.5 fl (80.0-96.0); MONO # 0.2 10^3/uL (0.0-0.8); MONO % 4.7 % (0.0-5.0); NEUTROPHILS # 1.8 10^3/uL (1.5-8.5); NEUTROPHILS % 56.7 % (36.0-66.0); PLATELET COUNT, AUTOMATED 210 10^3/uL (150-450); RED BLOOD COUNT 4.08 10^6/uL (4.00-5.40); WHITE BLOOD COUNT 3.2 10^3/uL (4.0-10.0)
[2019-07-19 14:28] LABS: ALBUMIN 4.5 GM/DL (3.2-5.2); BILIRUBIN,TOTAL 0.4 MG/DL (0.2-1.0); CALCIUM LEVEL 9.9 MG/DL (8.5-10.1); CREATININE FOR GFR 1.4 MG/DL (0.55-1.30); GLOMERULAR FILTRATION RATE 43.1 (>58); POTASSIUM SERUM 3.8 MEQ/L (3.5-5.1); TOTAL PROTEIN 8.2 GM/DL (6.4-8.2)
== END ==
LOC: M LAB 13:20
PROVIDERS: ATTEND Internal Medicine
DX: M94.1 Relapsing polychondritis (principal)

== ENCOUNTER → 2019-07-19 | Outpatient (CLI) | payer OTHER ==
[2019-07-19 14:36] LABS: FREE T4 0.98 NG/DL (0.76-1.46); THYROID STIMULATING HORMONE 0.019 uIU/ML (0.358-3.740)
[2019-07-19 14:38] LABS: CORTISOL PM 11.1 UG/DL (3.1-16.7)
[2019-07-22 00:06] LABS: ADRENOCORTICOTROPHIC HORMONE 15.7 pg/mL (7.2-63.3)
== END ==
LOC: M LAB 13:17
PROVIDERS: ATTEND Internal Medicine
DX: E03.8 Other specified hypothyroidism (principal); D35.2 Benign neoplasm of pituitary gland

== ENCOUNTER → 2019-07-19 | Outpatient (REF) | payer OTHER | LOC: M LAB REF 13:44 | PROVIDERS: ATTEND Nurse Practitioner Family | DX: N18.3 Chronic kidney disease, stage 3 (moderate) (principal); R63.0 Anorexia ==

== ENCOUNTER 2019-12-05 08:45 | Emergency (ER) | payer OTHER ==
[2019-12-05] MEDS ORDERED: ISOVUE-370 76% 100ML VIAL As Ordered ONE (10:05)
[2019-12-05] MEDS ORDERED: KETOROLAC 30 MG/ML 1ML VIAL As Ordered ONE (15:58)
--- NOTE | 2020-01-08 16:31 | ECGEPIP ---
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 RIGHT BUNDLE BRANCH BLOCK POSSIBLE SEE SCANNED DOWNTIME REPORT
[2020-01-20 10:24] LABS: BASO % 0.5 % (0.0-1.0); EOS # 0.1 10^3/uL (0.0-0.5); EOS % 2.1 % (0.0-3.0); HEMATOCRIT 37.8 % (36.0-47.0); HEMOGLOBIN 12.8 g/dl (12.0-15.5); LYMPH # 1.6 10^3/uL (1.5-5.0); LYMPH % 35.4 % (24.0-44.0); MEAN CORPUSCULAR HEMOGLOBIN 35.3 pg (27.0-33.0); MEAN CORPUSCULAR HGB CONC 33.9 g/dl (32.0-36.5); MEAN CORPUSCULAR VOLUME 104.1 fl (80.0-96.0); MONO # 0.3 10^3/uL (0.0-0.8); MONO % 6.2 % (0.0-5.0); NEUTROPHILS # 2.4 10^3/uL (1.5-8.5); NEUTROPHILS % 55.6 % (36.0-66.0); PLATELET COUNT, AUTOMATED 238 10^3/uL (150-450); RED BLOOD COUNT 3.63 10^6/uL (4.00-5.40); WHITE BLOOD COUNT 4.4 10^3/uL (4.0-10.0)
[2020-01-20 10:29] LABS: INR 1.02; PARTIAL THROMBOPLASTIN TIME 36.1 SECONDS (24.2-38.5); PROTHROMBIN TIME 13.6 SECONDS (12.5-14.3)
== END 2019-12-05 16:20 | disposition home or self-care (01) ==
LOC: M ED 08:45
DX: R07.89 Other chest pain (principal); R42 Dizziness and giddiness; R11.10 Vomiting, unspecified; D35.2 Benign neoplasm of pituitary gland; K21.9 Gastro-esophageal reflux disease without esophagitis; G43.909 Migraine, unspecified, not intractable, without status migrainosus; Z90.49 Acquired absence of other specified parts of digestive tract; Z90.710 Acquired absence of both cervix and uterus; Z88.3 Allergy status to other anti-infective agents; Z88.5 Allergy status to narcotic agent; Z88.8 Allergy status to other drugs, medicaments and biological substances; Z79.899 Other long term (current) drug therapy
CPT/HCPCS: 70450; 71046; 71275; 72125; 74177; 80047; 84702; 85025; 85610; 85730; 93005; 96374; 99284; J1885; Q9967

== ENCOUNTER → 2020-03-19 | Outpatient (CLI) | payer OTHER ==
[2020-03-19 08:12] LABS: HEMATOCRIT 36.3 % (36.0-47.0); HEMOGLOBIN 11.9 g/dl (12.0-15.5); MEAN CORPUSCULAR HEMOGLOBIN 33.7 pg (27.0-33.0); MEAN CORPUSCULAR HGB CONC 32.8 g/dl (32.0-36.5); MEAN CORPUSCULAR VOLUME 102.8 fl (80.0-96.0); PLATELET COUNT, AUTOMATED 194 10^3/uL (150-450); RED BLOOD COUNT 3.53 10^6/uL (4.00-5.40); WHITE BLOOD COUNT 3.9 10^3/uL (4.0-10.0)
[2020-03-19 08:53] LABS: ALBUMIN 3.7 GM/DL (3.2-5.2); BILIRUBIN,TOTAL 0.2 MG/DL (0.2-1.0); CALCIUM LEVEL 9.6 MG/DL (8.5-10.1); CREATININE FOR GFR 1.3 MG/DL (0.55-1.30); GLOMERULAR FILTRATION RATE 46.7 (>58); POTASSIUM SERUM 4.7 MEQ/L (3.5-5.1); TOTAL PROTEIN 6.9 GM/DL (6.4-8.2)
== END ==
LOC: M LAB 07:12
PROVIDERS: ATTEND Internal Medicine Gastroenterology
DX: R10.13 Epigastric pain (principal); K31.84 Gastroparesis; K21.9 Gastro-esophageal reflux disease without esophagitis; R13.10 Dysphagia, unspecified; R51.9 Headache, unspecified

== ENCOUNTER → 2020-03-19 | Outpatient (CLI) | payer OTHER ==
[2020-03-19 08:56] LABS: BLOOD UREA NITROGEN 23 MG/DL (7-18); CARBON DIOXIDE LEVEL 22 MEQ/L (21-32); CHLORIDE LEVEL 112 MEQ/L (98-107); CREATININE FOR GFR 1.25 MG/DL (0.55-1.30); FREE T4 0.74 NG/DL (0.76-1.46); GLOMERULAR FILTRATION RATE 48.9 (>58); GLUCOSE, FASTING 102 MG/DL (70-100); POTASSIUM SERUM 4.2 MEQ/L (3.5-5.1); SODIUM LEVEL 141 MEQ/L (136-145); THYROID STIMULATING HORMONE 0.098 uIU/ML (0.358-3.740)
[2020-03-19 09:14] LABS: CORTISOL AM 7.5 UG/DL (4.3-22.4)
[2020-03-19 09:15] LABS: ESTRADIOL < 19.0 PG/ML; FOLLICLE STIMULATING HORMONE 114.6 mIU/mL; LUTEINIZING HORMONE 31.9 mIU/mL; PROLACTIN 9.5 NG/ML
[2020-03-21 07:09] LABS: ADRENOCORTICOTROPHIC HORMONE 20.9 pg/mL (7.2-63.3); HUMAN GROWTH HORMONE 0.8 ng/mL (0.0-10.0)
== END ==
LOC: M LAB 07:08
PROVIDERS: ATTEND Nurse Practitioner
DX: D49.7 Neoplasm of unspecified behavior of endocrine glands and other parts of nervous system (principal)

== ENCOUNTER → 2020-06-04 | Outpatient (REF) | payer OTHER | LOC: M LAB REF 16:42 | PROVIDERS: ATTEND Nurse Practitioner Family | DX: N18.30 Chronic kidney disease, stage 3 unspecified (principal) ==

== ENCOUNTER → 2020-12-17 | Outpatient (REF) | payer OTHER | LOC: M LAB REF 17:09 | PROVIDERS: ATTEND Nurse Practitioner Family | DX: E83.42 Hypomagnesemia (principal) ==

== ENCOUNTER → 2021-08-18 | Outpatient (CLI) | payer OTHER ==
[~2021-08-18] MED LIST changes: +ISOVUE-370 76% 100ML VIAL As Ordered ONE; +PERC5TAB12 PO
== END ==
LOC: M RAD 15:44
PROVIDERS: ATTEND Nurse Practitioner Family
DX: R19.03 Right lower quadrant abdominal swelling, mass and lump (principal)
CPT/HCPCS: 74178; Q9967

== ENCOUNTER 2021-08-19 19:02 | Emergency (ER) | payer OTHER ==
[~2021-08-19] VITALS: Ht 154.9 cm; Wt 40.9 kg
[~2021-08-19 19:02] MED LIST changes: -ISOVUE-370 76% 100ML VIAL As Ordered ONE; -PERC5TAB12 PO
[2021-08-19 20:54] LABS: BASO % 0.5 % (0.0-1.0); EOS # 0.1 10^3/uL (0.0-0.5); EOS % 1.3 % (0.0-3.0); HEMATOCRIT 34.9 % (36.0-47.0); HEMOGLOBIN 11.7 g/dl (12.0-15.5); LYMPH # 1.2 10^3/uL (1.5-5.0); LYMPH % 22.1 % (24.0-44.0); MEAN CORPUSCULAR HEMOGLOBIN 35.5 pg (27.0-33.0); MEAN CORPUSCULAR HGB CONC 33.5 g/dl (32.0-36.5); MEAN CORPUSCULAR VOLUME 105.8 fl (80.0-96.0); MONO # 0.4 10^3/uL (0.0-0.8); MONO % 6.3 % (2.0-8.0); NEUTROPHILS # 3.8 10^3/uL (1.5-8.5); NEUTROPHILS % 69.6 % (36.0-66.0); PLATELET COUNT, AUTOMATED 215 10^3/uL (150-450); WHITE BLOOD COUNT 5.5 10^3/uL (4.0-10.0)
[2021-08-19] MEDS ORDERED: ONDANSETRON 4MG/2ML VIAL IV ONE (21:10)
[2021-08-19] MEDS ORDERED: MORPHINE 4 MG/ML 1ML VIAL/SYRINGE IV ONE ×2 (21:10→23:25)
[2021-08-19 21:19] LABS: ALBUMIN 3.7 GM/DL (3.2-5.2); ALT/SGPT 24 U/L (12-78); BILIRUBIN,DIRECT 0.1 MG/DL (0.0-0.2); BILIRUBIN,TOTAL 0.3 MG/DL (0.2-1.0); BLOOD UREA NITROGEN 16 MG/DL (7-18); CALCIUM LEVEL 9.6 MG/DL (8.5-10.1); CARBON DIOXIDE LEVEL 28 MEQ/L (21-32); CHLORIDE LEVEL 109 MEQ/L (98-107); CREATININE FOR GFR 1.05 MG/DL (0.55-1.30); GLOMERULAR FILTRATION RATE 59.5 (>58); GLUCOSE, FASTING 89 MG/DL (70-100); HCG, SERUM QUALITATIVE NEGATIVE (NEGATIVE); LIPASE 226 U/L (73-393); POTASSIUM SERUM 3.9 MEQ/L (3.5-5.1); SODIUM LEVEL 140 MEQ/L (136-145); TOTAL PROTEIN 6.7 GM/DL (6.4-8.2)
[2021-08-19] MEDS: GASTROGRAFIN SOLUTION 30ML PO SCH ×2 (22:10→22:42)
[2021-08-19] MEDS ORDERED: ISOVUE-370 76% 100ML VIAL As Ordered ONE (23:06)
[2021-08-20 00:32] VITALS: BP 153/84
[2021-08-20] MEDS ORDERED: fentaNYL 100 MCG/2 ML INJECTION IV ONE (01:40)
[2021-08-20] MEDS ORDERED: OXYCODONE/APAP 5MG/325MG(BULK FOR ED) 1 TABLET PO ONE (02:05)
[2021-08-20] MEDS ORDERED: PERC5TAB12 PO (02:06)
== END 2021-08-20 02:37 | disposition home or self-care (01) ==
LOC: M ED 19:02
DX: K43.5 Parastomal hernia without obstruction or gangrene (principal); R11.2 Nausea with vomiting, unspecified; R10.9 Unspecified abdominal pain; K76.89 Other specified diseases of liver; D35.2 Benign neoplasm of pituitary gland; K58.8 Other irritable bowel syndrome; K31.84 Gastroparesis; Z90.710 Acquired absence of both cervix and uterus; Z90.49 Acquired absence of other specified parts of digestive tract; F17.200 Nicotine dependence, unspecified, uncomplicated; Z88.8 Allergy status to other drugs, medicaments and biological substances; Z79.899 Other long term (current) drug therapy
CPT/HCPCS: 74177; 80048; 80076; 83690; 84703; 85025; 96374; 96375; 96376; 99284; J2270; J2405; J3010; Q9963; Q9967

== ENCOUNTER → 2021-08-25 | Outpatient (REF) | payer OTHER ==
[~2021-08-25] MED LIST changes: -AZAT50TA2; +AZAT50TA37; +PERC5TAB12 PO
== END ==
LOC: M LAB REF 16:04
PROVIDERS: ATTEND Otolaryngology
DX: C06.9 Malignant neoplasm of mouth, unspecified (principal); B49 Unspecified mycosis

== ENCOUNTER → 2021-09-10 | Outpatient (CLI) | payer OTHER ==
[~2021-09-10] MED LIST changes: +ISOVUE-370 76% 100ML VIAL As Ordered ONE
== END ==
LOC: M RAD 16:08
PROVIDERS: ATTEND Otolaryngology
DX: D37.09 Neoplasm of uncertain behavior of other specified sites of the oral cavity (principal)
CPT/HCPCS: 70491; Q9967

== ENCOUNTER → 2021-09-24 | Outpatient (CLI) | payer OTHER ==
[~2021-09-24] MED LIST changes: +ACET1TAB55 PO; -ALPR1TAB3; +ALPR1TAB3 GT; -AZAT50TA37; +AZAT50TA37 GT; +D 50CAP2 PO; +EXCETAB32 PO; +FLUO40CA PO; +GALC100S SQ; -HYDR50TA70; +HYDR50TA70 PO; -ISOVUE-370 76% 100ML VIAL As Ordered ONE; +LANS15CA PO; +LEVO112T2 PO; +LIDO2SOL17 PO; +LIDOCAINE 1% MDV 20ML VIAL As Ordered ONE; +LIOT5TAB6 PO; +MIDO5TA; +MIRT1TAB16 PO; +MIRT1TAB17 PO; +OLAN1TAB20 PO; +ONDA-84 PO; +OXYC-517 PO; +PROM12.56 PO; -QUET200T2; +QUET200T2 PO; -REXU1TAB2; +REXU1TAB2 PO; +TOPI100T9 PO; +medical marijuana; +vitamin d3 PO
[2021-09-24 10:26] VITALS: BP 126/81
== END ==
LOC: M IRPRO 09:39
PROVIDERS: ATTEND Otolaryngology
DX: R59.0 Localized enlarged lymph nodes (principal)

== ENCOUNTER → 2021-09-26 | Outpatient (CLI) | payer OTHER ==
[~2021-09-26] MED LIST changes: -LIDOCAINE 1% MDV 20ML VIAL As Ordered ONE
== END ==
LOC: M ONCR 09:05
PROVIDERS: ATTEND General Practice
DX: C04.8 Malignant neoplasm of overlapping sites of floor of mouth (principal); F17.210 Nicotine dependence, cigarettes, uncomplicated; Z79.899 Other long term (current) drug therapy; Z80.8 Family history of malignant neoplasm of other organs or systems; Z88.5 Allergy status to narcotic agent; Z88.8 Allergy status to other drugs, medicaments and biological substances; Z93.1 Gastrostomy status

== ENCOUNTER → 2021-10-06 | Outpatient (CLI) | payer OTHER | LOC: M PLARAD 10:41 | PROVIDERS: ATTEND Otolaryngology | DX: C04.9 Malignant neoplasm of floor of mouth, unspecified (principal) | CPT/HCPCS: 78815; A9552 ==

== ENCOUNTER → 2022-02-09 | Outpatient (CLI) | payer OTHER ==
[~2022-02-09] MED LIST changes: +ISOVUE-370 76% 100ML VIAL As Ordered ONE; +OXYC10TA12 PO
== END ==
LOC: M RAD 14:15
PROVIDERS: ATTEND Otolaryngology Plastic Surgery within the Head & Neck
DX: I45.9 Conduction disorder, unspecified (principal)
CPT/HCPCS: 70491; 71260; Q9967

== ENCOUNTER → 2022-05-26 | Outpatient (CLI) | payer OTHER ==
[~2022-05-26] MED LIST changes: +LIDO15SO4 PO; -LIDO2SOL17 PO
== END ==
LOC: M RAD 09:04
PROVIDERS: ATTEND Otolaryngology Plastic Surgery within the Head & Neck
DX: C02.9 Malignant neoplasm of tongue, unspecified (principal)

== ENCOUNTER → 2022-06-09 | Outpatient (CLI) | payer OTHER ==
[~2022-06-09] MED LIST changes: -ISOVUE-370 76% 100ML VIAL As Ordered ONE
== END ==
LOC: M ONCR 10:02
PROVIDERS: ATTEND General Practice
DX: C77.0 Secondary and unspecified malignant neoplasm of lymph nodes of head, face and neck (principal); Z85.819 Personal history of malignant neoplasm of unspecified site of lip, oral cavity, and pharynx; F17.218 Nicotine dependence, cigarettes, with other nicotine-induced disorders; R13.10 Dysphagia, unspecified; Z79.82 Long term (current) use of aspirin; Z79.890 Hormone replacement therapy; Z79.891 Long term (current) use of opiate analgesic; Z79.899 Other long term (current) drug therapy; Z88.4 Allergy status to anesthetic agent; Z88.5 Allergy status to narcotic agent; Z88.8 Allergy status to other drugs, medicaments and biological substances; Z93.1 Gastrostomy status

== ENCOUNTER 2022-07-15 13:04 | Emergency (ER) | payer OTHER ==
[~2022-07-15] VITALS: Ht 154.9 cm; Wt 43.2 kg
[2022-07-15 14:51] LABS: BASO % 0.6 % (0.0-1.0); EOS # 0.2 10^3/uL (0.0-0.5); HEMATOCRIT 35.4 % (36.0-47.0); HEMOGLOBIN 11.6 g/dl (12.0-15.5); LYMPH # 0.7 10^3/uL (1.5-5.0); LYMPH % 14.5 % (24.0-44.0); MEAN CORPUSCULAR HEMOGLOBIN 35.5 pg (27.0-33.0); MEAN CORPUSCULAR HGB CONC 32.8 g/dl (32.0-36.5); MEAN CORPUSCULAR VOLUME 108.3 fl (80.0-96.0); MONO # 0.3 10^3/uL (0.0-0.8); MONO % 6.3 % (2.0-8.0); NEUTROPHILS # 3.5 10^3/uL (1.5-8.5); NEUTROPHILS % 74.2 % (36.0-66.0); PLATELET COUNT, AUTOMATED 245 10^3/uL (150-450); RED BLOOD COUNT 3.27 10^6/uL (4.00-5.40); WHITE BLOOD COUNT 4.8 10^3/uL (4.0-10.0)
[2022-07-15] MEDS ORDERED: HYDROMORPHONE HCL 0.5 MG/ 0.5 ML SYRINGE IV ONE (15:05)
[2022-07-15] MEDS ORDERED: ISOVUE-370 76% 100ML VIAL As Ordered ONE (15:18)
[2022-07-15 15:20] LABS: ALBUMIN 2.7 G/DL (3.2-5.2); ALKALINE PHOSPHATASE 75 U/L (46-116); ALT/SGPT 9 U/L (7.0-40); AST/SGOT 16 U/L (<34); BILIRUBIN,DIRECT < 0.1 MG/DL (<0.4); BILIRUBIN,TOTAL 0.2 MG/DL (0.3-1.2); TOTAL PROTEIN 5.5 G/DL (5.7-8.2)
[2022-07-15] MEDS ORDERED: PERC5TAB12 PO (16:22)
[2022-07-15 17:04] VITALS: BP 116/71
== END 2022-07-15 17:21 | disposition home or self-care (01) ==
LOC: M ED 13:04
DX: J90 Pleural effusion, not elsewhere classified (principal); J98.11 Atelectasis; K21.9 Gastro-esophageal reflux disease without esophagitis; Z86.711 Personal history of pulmonary embolism; K58.9 Irritable bowel syndrome, unspecified; C75.1 Malignant neoplasm of pituitary gland; I45.10 Unspecified right bundle-branch block; Z90.49 Acquired absence of other specified parts of digestive tract; Z90.710 Acquired absence of both cervix and uterus; Z93.1 Gastrostomy status; F17.210 Nicotine dependence, cigarettes, uncomplicated; Z95.818 Presence of other cardiac implants and grafts; Z88.5 Allergy status to narcotic agent; Z79.899 Other long term (current) drug therapy; Z79.51 Long term (current) use of inhaled steroids; Z79.890 Hormone replacement therapy
CPT/HCPCS: 71045; 71275; 80047; 80076; 85025; 93005; 93041; 94010; 94760; 96374; 99285; J1170; Q9967

== ENCOUNTER → 2022-07-31 | Outpatient (CLI) | payer OTHER ==
[~2022-07-31] MED LIST changes: +CALC355O2 PO; +DRON10CA7; -DRON1CAP3; +LIDO15SO PO; -LIDO15SO4 PO
== END ==
LOC: M ONCR 09:02
PROVIDERS: ATTEND General Practice
DX: C04.0 Malignant neoplasm of anterior floor of mouth (principal); C77.0 Secondary and unspecified malignant neoplasm of lymph nodes of head, face and neck; F17.210 Nicotine dependence, cigarettes, uncomplicated; R13.10 Dysphagia, unspecified; Z79.82 Long term (current) use of aspirin; Z79.890 Hormone replacement therapy; Z79.891 Long term (current) use of opiate analgesic; Z79.899 Other long term (current) drug therapy; Z88.1 Allergy status to other antibiotic agents; Z88.5 Allergy status to narcotic agent; Z93.1 Gastrostomy status

== ENCOUNTER 2022-08-09 23:39 | Emergency (ER) | payer OTHER ==
[~2022-08-09] VITALS: Ht 154.9 cm; Wt 38.7 kg
[2022-08-10 01:01] LABS: BASO % 0.3 % (0.0-1.0); EOS # 0.1 10^3/uL (0.0-0.5); EOS % 1.6 % (0.0-3.0); HEMATOCRIT 32.6 % (36.0-47.0); LYMPH # 0.6 10^3/uL (1.5-5.0); LYMPH % 7.4 % (24.0-44.0); MEAN CORPUSCULAR HEMOGLOBIN 34.7 pg (27.0-33.0); MEAN CORPUSCULAR HGB CONC 33.7 g/dl (32.0-36.5); MEAN CORPUSCULAR VOLUME 102.8 fl (80.0-96.0); MONO # 0.6 10^3/uL (0.0-0.8); MONO % 7.9 % (2.0-8.0); NEUTROPHILS # 6.6 10^3/uL (1.5-8.5); NEUTROPHILS % 82.5 % (36.0-66.0); PLATELET COUNT, AUTOMATED 223 10^3/uL (150-450); RED BLOOD COUNT 3.17 10^6/uL (4.00-5.40)
[2022-08-10 01:21] LABS: BLOOD UREA NITROGEN 28 MG/DL (9-23); CALCIUM LEVEL 12.7 MG/DL (8.5-10.1); CARBON DIOXIDE LEVEL 27 MMOL/L (20-31); CHLORIDE LEVEL 104 MMOL/L (98-107); CK-MB VALUE MASS < 1.0 NG/ML (<3.6); GLOMERULAR FILTRATION RATE 56.2 (>58); GLUCOSE, FASTING 119 MG/DL (60-100); MAGNESIUM LEVEL 1.7 MG/DL (1.8-2.4); POTASSIUM SERUM 4.1 MMOL/L (3.5-5.1); SODIUM LEVEL 136 MMOL/L (136-145)
[2022-08-10 01:22] LABS: THYROID STIMULATING HORMONE 0.039 uIU/ML (0.55-4.78)
[2022-08-10 01:23] LABS: FREE T4 0.73 NG/DL (0.89-1.76)
[2022-08-10] MEDS ORDERED: GABAPENTIN 100 MG CAP PEG ONE (01:25)
[2022-08-10] MEDS ORDERED: MAG SULF 1GM/100ML (MAG RUN) 1 GM in IV 1 EA IV ONE (01:25)
[2022-08-10 01:26] LABS: CPK CREATINE PHOSPHOKINASE 30 U/L (34-145); MB/CK RELATIVE INDEX 3.33 (< OR =4)
[2022-08-10] MEDS ORDERED: KETOROLAC 30 MG/ML 1ML VIAL IV ONE (02:45)
[2022-08-10 02:48] LABS: CK-MB VALUE MASS < 1.0 NG/ML (<3.6)
[2022-08-10] MEDS ORDERED: OXYC1SOL3 PO (02:48)
[2022-08-10] MEDS ORDERED: KETO10TAB PO (02:48)
[2022-08-10 02:50] LABS: CPK CREATINE PHOSPHOKINASE 25 U/L (34-145)
[2022-08-10] MEDS ORDERED: OXYCODONE/APAP 5MG/325MG(HOME DOSE PACK) PO ONE (02:55)
[2022-08-10 03:00] VITALS: BP 105/77
== END 2022-08-10 03:16 | disposition home or self-care (01) ==
LOC: M ED 23:39
DX: S22.32XA Fracture of one rib, left side, initial encounter for closed fracture (principal); M50.20 Other cervical disc displacement, unspecified cervical region; I70.0 Atherosclerosis of aorta; Z93.1 Gastrostomy status; R59.9 Enlarged lymph nodes, unspecified; M89.9 Disorder of bone, unspecified; R94.31 Abnormal electrocardiogram [ECG] [EKG]; Z79.899 Other long term (current) drug therapy; Z88.5 Allergy status to narcotic agent; Z88.8 Allergy status to other drugs, medicaments and biological substances
CPT/HCPCS: 70450; 71250; 72125; 73030; 80048; 82550; 82553; 83605; 83735; 84439; 84443; 85025; 93005; 93041; 94760; 96365; 96366; 96375; 99285; J1885; J3475

== ENCOUNTER 2022-08-10 14:01 | Outpatient (RCR) | payer OTHER ==
[~2022-08-10 14:01] MED LIST changes: -ALPR1TAB3 GT; +ALPR1TAB3 PO; -AZAT50TA37 GT; +AZAT50TA37 PO; +KETO10TAB PO; -MIDO5TA; +MIDO5TA PO; +OXYC1SOL3 PO
[2022-08-13] MEDS ORDERED: OXYC1SOL3 PO (13:08)
[2022-08-18] MEDS ORDERED: FAMO40TA3 PO (18:31)
[2022-08-18] MEDS ORDERED: AIMO70IN SC (18:31)
[2022-08-18] MEDS ORDERED: REXU1TAB3 PO (18:31)
[2022-08-18] MEDS ORDERED: KETO10TAB PO (18:31)
[2022-08-18] MEDS ORDERED: LANS30CA93 PO (18:31)
[2022-08-18] MEDS ORDERED: MIRT1TAB15 PO (18:31)
[2022-08-18] MEDS ORDERED: QUET1TAB17 PO (18:31)
[2022-08-20] MEDS ORDERED: OXYC1TAB23 GT (13:18)
[2022-08-21] MEDS ORDERED: DEXA2TA PO (08:20)
[2022-08-21] MEDS ORDERED: OXYC1TAB23 GT (12:41)
[2022-08-21] MEDS ORDERED: OXYC10TA12 PEG (14:18)
[2022-08-26] MEDS ORDERED: OXYC10TA12 PEG (10:00)
[2022-08-26] MEDS ORDERED: FENT12DI12 TOP (10:00)
== END 2022-08-23 ==
LOC: M ONCR 14:01
PROVIDERS: ATTEND General Practice
DX: C04.0 Malignant neoplasm of anterior floor of mouth (principal); C79.51 Secondary malignant neoplasm of bone

== ENCOUNTER 2022-08-18 16:04 | Inpatient (IN) | payer OTHER ==
[~2022-08-18] VITALS: Ht 154.9 cm; Wt 43.5 kg
[~2022-08-18 16:04] MED LIST changes: -AIMO70IN SC; -DEXA2TA PO; -FAMO40TA3 PO; -LANS30CA93 PO; -LIDOCAINE 1% MDV 20ML VIAL As Ordered ONE; -MIRT1TAB15 PO; -OXYC10TA12 PEG; -OXYC1TAB23 GT; -QUET1TAB17 PO; -REXU1TAB3 PO
[2022-08-18] MEDS ORDERED: NS 1,000 ML IV ONE (16:10)
[2022-08-18] MEDS ORDERED: CALCITONIN SALMON (MIACALCIN) 400INTERNATIONAL UNITS/2ML VIAL SQ STA (16:27)
[2022-08-18] MEDS: HYDROMORPHONE HCL 0.5 MG/ 0.5 ML SYRINGE IV PRN ×3 (16:49→23:14)
[2022-08-18 16:53] LABS: MAGNESIUM LEVEL 1.7 MG/DL (1.8-2.4); PHOSPHORUS LEVEL 3.2 MG/DL (2.5-4.9)
[2022-08-18 16:54] LABS: PTH INTACT 7.4 PG/ML (18.5-88.0)
[2022-08-18 16:55] LABS: THYROID STIMULATING HORMONE 0.07 uIU/ML (0.55-4.78); THYROXINE (T4) 8.1 UG/DL (4.5-10.9)
[2022-08-18 16:56] LABS: FREE THYROXINE INDEX 2.8 % (1.3-4.8); T UPTAKE 34.4 % (22.5-37.0); TOTAL 25(OH) VITAMIN D 52.7 NG/ML (20.0-100.0)
[2022-08-18] MEDS ORDERED: ONDANSETRON 4MG 2ML VIAL IV ONE (17:30)
[2022-08-18] MEDS ORDERED: ALPRAZolam 0.5 MG TAB GT ONE (17:30)
[2022-08-18] MEDS ORDERED: MAGNESIUM OXIDE 400MG TAB (MAG-OX) PO ONE (17:35)
[2022-08-18] MEDS ORDERED: ZOLEDRONIC ACID 4 MG in IV 1 EA IV ONE (18:00)
[2022-08-18] MEDS: NS 1,000 ML IV SCH (18:22)
[2022-08-18] MEDS ORDERED: MAG SULF 1GM/100ML (MAG RUN) 1 GM in IV 1 EA IV ONE (18:25)
[2022-08-18] MEDS ORDERED: REXU1TAB3 PO (18:31)
[2022-08-18] MEDS ORDERED: LANS30CA93 PO (18:31)
[2022-08-18] MEDS ORDERED: FAMO40TA3 PO (18:31)
[2022-08-18] MEDS ORDERED: QUET1TAB17 PO (18:31)
[2022-08-18] MEDS ORDERED: AIMO70IN SC (18:31)
[2022-08-18] MEDS ORDERED: KETO10TAB PO (18:31)
[2022-08-18] MEDS ORDERED: MIRT1TAB15 PO (18:31)
[2022-08-18] MEDS ORDERED: HOME MED LIST COMPLETE! XX SCH (18:35)
[2022-08-18] MEDS ORDERED: ALBUTEROL 90 MCG/ACT 8GM HFA INHALER INH PRN (18:40)
[2022-08-18] MEDS ORDERED: hydrOXYzine 50 MG TAB PO PRN (18:40)
[2022-08-18] MEDS ORDERED: RIZATRIPTAN BENZOATE 10 MG TAB PO PRN (18:40)
[2022-08-18] MEDS ORDERED: PROMETHAZINE 25 MG TAB PO PRN (18:40)
[2022-08-18 19:00] LABS: RSV AMPLIFICATION NEGATIVE (NEGATIVE)
[2022-08-18] MEDS ORDERED: PILL CUTTER 1 EACH XX PRN (19:10)
[2022-08-18 20:30] VITALS: BP 129/79; O2SAT 98
[2022-08-18 21:00] VITALS: O2SAT 97
[2022-08-18] MEDS ORDERED: ONDANSETRON 4MG 2ML VIAL IV PRN (21:00)
[2022-08-18] MEDS ORDERED: azaTHIOprine 10MG/ML SUSP *COMPOUNDED* 40ML BOTTLE PO SCH (21:00)
[2022-08-18] MEDS ORDERED: LIDOCAINE VISCOUS 2% SOLN 15ML UDC PO PRN (21:00)
[2022-08-18 22:00] VITALS: O2SAT 97
[2022-08-18] MEDS: FAMOTIDINE 20 MG TAB PO SCH (22:17)
[2022-08-18] MEDS: QUEtiapine FUMARATE 200 MG TAB PO SCH (22:20)
[2022-08-18 23:38] VITALS: BP 99/57
[2022-08-18 23:42] VITALS: O2SAT 96
[2022-08-19] VITALS (26 sets, daily range): BP systolic 84–118; BP diastolic 51–70; O2SAT 96–99
[2022-08-19] MEDS: NS 1,000 ML IV SCH ×5 (00:24→18:40)
[2022-08-19 01:03] LABS: CALCIUM LEVEL 12.5 MG/DL (8.5-10.1); CREATININE FOR GFR 1.55 MG/DL (0.55-1.30); GLOMERULAR FILTRATION RATE 37.8 (>58); MAGNESIUM LEVEL 1.3 MG/DL (1.8-2.4); POTASSIUM SERUM 4.1 MMOL/L (3.5-5.1)
[2022-08-19] MEDS: MAG SULF 1GM/100ML (MAG RUN) 1 GM in IV 1 EA IV SCH ×4 (01:41→20:22)
[2022-08-19] MEDS: ACETAMINOPHEN TAB 650MG DOSE (2X325MG) PO PRN (01:44)
[2022-08-19] MEDS ORDERED: SODIUM CHLORIDE 0.9% 500 ML IV ONE (04:25)
[2022-08-19] MEDS: LIDOCAINE 5% (LIDODERM) PATCH TD SCH (04:54)
[2022-08-19] MEDS ORDERED: CALCITONIN SALMON (MIACALCIN) 400INTERNATIONAL UNITS/2ML VIAL SQ SCH ×2 (05:00→20:00)
[2022-08-19 06:02] LABS: CALCIUM LEVEL 11.3 MG/DL (8.5-10.1); CREATININE FOR GFR 1.63 MG/DL (0.55-1.30); GLOMERULAR FILTRATION RATE 35.7 (>58); MAGNESIUM LEVEL 2.3 MG/DL (1.8-2.4); POTASSIUM SERUM 3.9 MMOL/L (3.5-5.1)
[2022-08-19] MEDS: HYDROMORPHONE HCL 0.5 MG/ 0.5 ML SYRINGE IV PRN (06:35)
[2022-08-19] MEDS: LEVOTHYROXINE 75MCG TABLET (0.075MG) PO SCH (06:35)
[2022-08-19] MEDS: MIDODRINE 5 MG TAB PO SCH ×3 (07:38→15:25)
[2022-08-19] MEDS ORDERED: ACETAMINOPHEN 1000MG 100ML IV BAG IV ONE (08:00)
[2022-08-19] MEDS ORDERED: MORPHINE 2 MG/ML 1ML VIAL IV ONE (08:00)
[2022-08-19] MEDS ORDERED: CALCITONIN SALMON (MIACALCIN) 400INTERNATIONAL UNITS/2ML VIAL SQ ONE (08:20)
[2022-08-19] MEDS: QUEtiapine FUMARATE 25 MG TAB PO SCH (09:21)
[2022-08-19] MEDS: FLUoxetine 20MG CAP PO SCH (09:21)
[2022-08-19] MEDS: FAMOTIDINE 20 MG TAB PO SCH (09:21)
[2022-08-19] MEDS ORDERED: ACETAMINOPHEN IV ONE (10:00)
[2022-08-19] MEDS: ALPRAZolam 0.5 MG TAB GT PRN ×2 (10:14→16:15)
[2022-08-19] MEDS ORDERED: diphenhydrAMINE 50MG/ML VIAL IV PRN (11:45)
[2022-08-19] MEDS ORDERED: EPIDURAL/PCA KEYS XX PRN (11:45)
[2022-08-19] MEDS ORDERED: NS 1,000 ML IV SCH ×2 (11:45→15:30)
[2022-08-19] MEDS ORDERED: NALOXONE INJ 0.4MG/1ML VIAL IV PRN (11:45)
[2022-08-19] MEDS ORDERED: ONDANSETRON 4MG 2ML VIAL IV PRN (11:45)
[2022-08-19] MEDS ORDERED: MORPHINE 1MG/ML IN 0.9% NACL 100ML IV BAG IV PRN (12:00)
[2022-08-19] MEDS: OLANZapine 10 MG TAB PO SCH (12:48)
[2022-08-19 13:48] LABS: CALCIUM LEVEL 9.6 MG/DL (8.5-10.1); CREATININE FOR GFR 1.5 MG/DL (0.55-1.30); GLOMERULAR FILTRATION RATE 39.3 (>58); MAGNESIUM LEVEL 1.6 MG/DL (1.8-2.4); POTASSIUM SERUM 3.9 MMOL/L (3.5-5.1)
[2022-08-19] MEDS ORDERED: NS 1,000 ML IV ONE (15:30)
[2022-08-19 18:32] LABS: CALCIUM LEVEL 8.6 MG/DL (8.5-10.1); CREATININE FOR GFR 1.42 MG/DL (0.55-1.30); GLOMERULAR FILTRATION RATE 41.9 (>58); MAGNESIUM LEVEL 1.4 MG/DL (1.8-2.4); POTASSIUM SERUM 3.7 MMOL/L (3.5-5.1)
[2022-08-19] MEDS ORDERED: POTASSIUM CHLORIDE 10MEQ SR TABLET PO ONE (18:35)
[2022-08-19] MEDS ORDERED: POTASSIUM CHLORIDE 10% LIQ 20MEQ/15ML UDC GT ONE (18:40)
[2022-08-19] MEDS ORDERED: MIRTAZAPINE 15 MG TAB PO SCH (21:00)
[2022-08-19] MEDS: QUEtiapine FUMARATE 200 MG TAB PO SCH (21:13)
[2022-08-20 00:23] LABS: CALCIUM LEVEL 9.3 MG/DL (8.5-10.1); CREATININE FOR GFR 1.36 MG/DL (0.55-1.30); MAGNESIUM LEVEL 2.1 MG/DL (1.8-2.4); POTASSIUM SERUM 3.8 MMOL/L (3.5-5.1)
[2022-08-20] MEDS: NS 1,000 ML IV SCH (03:10)
[2022-08-20 03:37] VITALS: BP 109/59
[2022-08-20] MEDS: LEVOTHYROXINE 75MCG TABLET (0.075MG) PO SCH (05:02)
[2022-08-20] MEDS: ACETAMINOPHEN TAB 650MG DOSE (2X325MG) PO PRN (05:02)
[2022-08-20 06:33] LABS: CALCIUM LEVEL 8.8 MG/DL (8.5-10.1); CREATININE FOR GFR 1.28 MG/DL (0.55-1.30); GLOMERULAR FILTRATION RATE 47.2 (>58); MAGNESIUM LEVEL 1.6 MG/DL (1.8-2.4); POTASSIUM SERUM 3.5 MMOL/L (3.5-5.1)
[2022-08-20 07:53] VITALS: BP 101/61
[2022-08-20] MEDS ORDERED: MAG SULF 1GM/100ML (MAG RUN) 1 GM in IV 1 EA IV ONE (08:05)
[2022-08-20] MEDS ORDERED: MORPHINE 2 MG/ML 1ML VIAL IV PRN (08:10)
[2022-08-20] MEDS: MIDODRINE 5 MG TAB PO SCH ×2 (08:32→12:18)
[2022-08-20] MEDS: QUEtiapine FUMARATE 25 MG TAB PO SCH (08:32)
[2022-08-20] MEDS: FLUoxetine 20MG CAP PO SCH (08:32)
[2022-08-20] MEDS: LIDOCAINE 5% (LIDODERM) PATCH TD SCH (08:33)
[2022-08-20] MEDS: PERCOCET 5MG/325MG TAB PO PRN ×2 (08:36→12:18)
[2022-08-20] MEDS: OLANZapine 10 MG TAB PO SCH (08:37)
[2022-08-20] MEDS ORDERED: POTASSIUM CHLORIDE 10MEQ SR TABLET PO SCH (09:00)
[2022-08-20 11:50] VITALS: BP 102/59
[2022-08-20 13:04] LABS: CALCIUM LEVEL 8.9 MG/DL (8.5-10.1); CREATININE FOR GFR 1.16 MG/DL (0.55-1.30); GLOMERULAR FILTRATION RATE 52.9 (>58); MAGNESIUM LEVEL 1.9 MG/DL (1.8-2.4); POTASSIUM SERUM 3.5 MMOL/L (3.5-5.1)
[2022-08-20] MEDS ORDERED: OXYC1TAB23 GT (13:18)
[2022-08-21] MEDS ORDERED: DEXA2TA PO (08:20)
[2022-08-21] MEDS ORDERED: OXYC1TAB23 GT (12:41)
[2022-08-21] MEDS ORDERED: OXYC10TA12 PEG (14:18)
== END 2022-08-20 12:35 | disposition home or self-care (01) | DRG 425 ==
LOC: M ED 16:04 → M ED INP 16:37 → M PCU 20:09 → M ED INP 08-19 18:38
PROVIDERS: ADMIT General Practice; ATTEND General Practice
DX: E83.52 Hypercalcemia (principal); R53.83 Other fatigue; K59.00 Constipation, unspecified; R11.0 Nausea; R63.0 Anorexia; R63.1 Polydipsia; C02.2 Malignant neoplasm of ventral surface of tongue; F32.A Depression, unspecified; G93.41 Metabolic encephalopathy; K21.9 Gastro-esophageal reflux disease without esophagitis; N17.9 Acute kidney failure, unspecified; E03.9 Hypothyroidism, unspecified; C04.9 Malignant neoplasm of floor of mouth, unspecified; F41.0 Panic disorder [episodic paroxysmal anxiety]; G43.909 Migraine, unspecified, not intractable, without status migrainosus; N18.9 Chronic kidney disease, unspecified; M94.1 Relapsing polychondritis; Z88.5 Allergy status to narcotic agent; Z88.8 Allergy status to other drugs, medicaments and biological substances; Z88.4 Allergy status to anesthetic agent; Z86.711 Personal history of pulmonary embolism; Z93.1 Gastrostomy status; Z87.891 Personal history of nicotine dependence; Z79.890 Hormone replacement therapy; Z79.899 Other long term (current) drug therapy

== ENCOUNTER → 2022-08-18 | Outpatient (CLI) | payer OTHER ==
[~2022-08-18] MED LIST changes: +AIMO70IN SC; +DEXA2TA PO; +FAMO40TA3 PO; +LANS30CA93 PO; +LIDOCAINE 1% MDV 20ML VIAL As Ordered ONE; +MIRT1TAB15 PO; +OXYC10TA12 PEG; +OXYC1TAB23 GT; +QUET1TAB17 PO; +REXU1TAB3 PO
[2022-08-18 13:49] LABS: HEMATOCRIT 30.3 % (36.0-47.0); HEMOGLOBIN 10.2 g/dl (12.0-15.5); MEAN CORPUSCULAR HEMOGLOBIN 34.3 pg (27.0-33.0); MEAN CORPUSCULAR HGB CONC 33.7 g/dl (32.0-36.5); PLATELET COUNT, AUTOMATED 324 10^3/uL (150-450); RED BLOOD COUNT 2.97 10^6/uL (4.00-5.40); WHITE BLOOD COUNT 6.5 10^3/uL (4.0-10.0)
[2022-08-18 14:02] LABS: PARTIAL THROMBOPLASTIN TIME 26.5 SECONDS (24.8-34.2); PROTHROMBIN TIME 13.4 SECONDS (12.5-14.5)
[2022-08-18 14:50] LABS: ALBUMIN 2.8 G/DL (3.2-5.2); BILIRUBIN,TOTAL 0.2 MG/DL (0.3-1.2); CALCIUM LEVEL 16.1 MG/DL (8.5-10.1); CREATININE FOR GFR 1.73 MG/DL (0.55-1.30); GLOMERULAR FILTRATION RATE 33.3 (>58); POTASSIUM SERUM 4.2 MMOL/L (3.5-5.1); TOTAL PROTEIN 6.7 G/DL (5.7-8.2)
[2022-08-18 15:30] VITALS: BP 153/88
== END ==
LOC: M IRPRO 12:46
PROVIDERS: ATTEND General Practice
DX: C79.51 Secondary malignant neoplasm of bone (principal); C04.0 Malignant neoplasm of anterior floor of mouth

== ENCOUNTER → 2022-08-26 | Outpatient (CLI) | payer OTHER ==
[~2022-08-26] MED LIST changes: +ACET-683 PO; +AIMO70IN SC; +DEXA2TA PO; +FAMO40TA3 PO; +FENT12DI12 TOP; +FLUC100T3 PEG; +LANS30CA93 PO; +LEVO100T5 PO; +MIRT1TAB15 PO; +OXYC10TA12 PEG; +OXYC1TAB23 GT; +POTA10CA33 PO; +QUET1TAB17 PO; +REXU1TAB3 PO; +SUCR1ORA2 PO
== END ==
LOC: M ONCR 10:12
PROVIDERS: ATTEND General Practice
DX: C79.51 Secondary malignant neoplasm of bone (principal); Z79.891 Long term (current) use of opiate analgesic

== ENCOUNTER → 2022-09-03 | Outpatient (CLI) | payer OTHER ==
[~2022-09-03] VITALS: Ht 154.9 cm; Wt 39.2 kg
[~2022-09-03] MED LIST changes: +METH10CO SL; +METH5TA PO; +MOTR200T44 PO; +ONDA8TAB8 PO; +OXYC100C5 SL
[2022-09-03 07:50] VITALS: BP 106/65
== END ==
LOC: M PAL 07:44
PROVIDERS: ATTEND Nurse Practitioner Adult Health
DX: C44.329 Squamous cell carcinoma of skin of other parts of face (principal); C77.0 Secondary and unspecified malignant neoplasm of lymph nodes of head, face and neck; C79.51 Secondary malignant neoplasm of bone; Z92.3 Personal history of irradiation; Z92.21 Personal history of antineoplastic chemotherapy; R13.10 Dysphagia, unspecified; Z93.1 Gastrostomy status; Z93.2 Ileostomy status; F17.210 Nicotine dependence, cigarettes, uncomplicated; Z51.5 Encounter for palliative care; Z79.891 Long term (current) use of opiate analgesic; Z79.52 Long term (current) use of systemic steroids; G89.3 Neoplasm related pain (acute) (chronic); M79.2 Neuralgia and neuritis, unspecified; B37.0 Candidal stomatitis; R63.0 Anorexia; R64 Cachexia; F43.10 Post-traumatic stress disorder, unspecified; F32.A Depression, unspecified; F41.9 Anxiety disorder, unspecified; Z66 Do not resuscitate; Z79.82 Long term (current) use of aspirin; Z79.890 Hormone replacement therapy; Z88.6 Allergy status to analgesic agent; Z88.8 Allergy status to other drugs, medicaments and biological substances; Z80.8 Family history of malignant neoplasm of other organs or systems

== ENCOUNTER → 2022-09-07 | Outpatient (CLI) | payer OTHER ==
[~2022-09-07] MED LIST changes: -METH5TA PO
== END ==
LOC: M PLARAD 11:57
PROVIDERS: ATTEND General Practice
DX: C04.0 Malignant neoplasm of anterior floor of mouth (principal); C79.51 Secondary malignant neoplasm of bone
CPT/HCPCS: 78815; A9552

== ENCOUNTER → 2022-09-07 | Outpatient (CLI) | payer OTHER ==
[~2022-09-07] MED LIST changes: +LIDOCAINE 1% MDV 20ML VIAL As Ordered ONE; +METH5TA PO; +MIDAZOLAM INJ 2MG/2ML VIAL As Ordered ONE; +NS 1,000 ML IV SCH; +ceFAZolin 2 GM/D5W 50 ML IV BAG As Ordered ONE; +ceFAZolin SOD 2 GM in IV 1 EA IV ONE; +diphenhydrAMINE 50MG/ML VIAL As Ordered ONE; +fentaNYL 100 MCG/2 ML INJECTION As Ordered ONE
[2022-09-07 09:20] VITALS: BP 106/71
== END ==
LOC: M IRPRO 06:57
PROVIDERS: ATTEND Internal Medicine Medical Oncology
DX: C06.9 Malignant neoplasm of mouth, unspecified (principal)
CPT/HCPCS: 36569; C1769; C1788; C1894; J0690; J2250; J3010

== ENCOUNTER → 2022-09-09 | Outpatient (CLI) | payer OTHER ==
[~2022-09-09] MED LIST changes: -LIDOCAINE 1% MDV 20ML VIAL As Ordered ONE; -MIDAZOLAM INJ 2MG/2ML VIAL As Ordered ONE; -NS 1,000 ML IV SCH; -ceFAZolin 2 GM/D5W 50 ML IV BAG As Ordered ONE; -ceFAZolin SOD 2 GM in IV 1 EA IV ONE; -diphenhydrAMINE 50MG/ML VIAL As Ordered ONE; -fentaNYL 100 MCG/2 ML INJECTION As Ordered ONE
== END ==
LOC: M PAL 09:54
PROVIDERS: ATTEND Nurse Practitioner Adult Health
DX: C04.9 Malignant neoplasm of floor of mouth, unspecified (principal); C77.0 Secondary and unspecified malignant neoplasm of lymph nodes of head, face and neck; C79.51 Secondary malignant neoplasm of bone; R13.10 Dysphagia, unspecified; Z93.1 Gastrostomy status; Z92.3 Personal history of irradiation; Z92.21 Personal history of antineoplastic chemotherapy; Z51.5 Encounter for palliative care; F17.210 Nicotine dependence, cigarettes, uncomplicated; G89.3 Neoplasm related pain (acute) (chronic); Z79.891 Long term (current) use of opiate analgesic; Z79.52 Long term (current) use of systemic steroids; R63.0 Anorexia; R64 Cachexia; F43.10 Post-traumatic stress disorder, unspecified; F32.A Depression, unspecified; F41.9 Anxiety disorder, unspecified; N18.9 Chronic kidney disease, unspecified; K31.84 Gastroparesis; Z79.899 Other long term (current) drug therapy; Z66 Do not resuscitate; Z79.82 Long term (current) use of aspirin; Z88.5 Allergy status to narcotic agent; Z88.8 Allergy status to other drugs, medicaments and biological substances; Z80.8 Family history of malignant neoplasm of other organs or systems; Z90.49 Acquired absence of other specified parts of digestive tract; Z90.710 Acquired absence of both cervix and uterus

== ENCOUNTER 2022-09-11 13:05 | Outpatient (RCR) | payer OTHER ==
[2022-09-16] MEDS ORDERED: METH5TA PO (08:42)
[2022-09-17] MEDS ORDERED: OXYC100C5 SL (15:45)
== END 2022-09-23 ==
LOC: M ONCR 13:05
PROVIDERS: ATTEND General Practice
DX: C04.0 Malignant neoplasm of anterior floor of mouth (principal); C79.51 Secondary malignant neoplasm of bone

== ENCOUNTER → 2022-09-15 | Outpatient (CLI) | payer OTHER ==
[~2022-09-15] VITALS: Ht 154.9 cm; Wt 35.8 kg
[~2022-09-15] MED LIST changes: -POTA10CA33 PO; +POTA10CA60 PO
[2022-09-15 15:15] VITALS: BP 105/73; TEMP 98.9; O2SAT 98
== END ==
LOC: M PAL 15:08
PROVIDERS: ATTEND Nurse Practitioner Adult Health
DX: C04.9 Malignant neoplasm of floor of mouth, unspecified (principal); C77.0 Secondary and unspecified malignant neoplasm of lymph nodes of head, face and neck; C79.51 Secondary malignant neoplasm of bone; R91.8 Other nonspecific abnormal finding of lung field; Z93.1 Gastrostomy status; R13.10 Dysphagia, unspecified; F17.210 Nicotine dependence, cigarettes, uncomplicated; Z92.21 Personal history of antineoplastic chemotherapy; Z92.3 Personal history of irradiation; Z51.5 Encounter for palliative care; Z66 Do not resuscitate; Z79.52 Long term (current) use of systemic steroids; Z79.891 Long term (current) use of opiate analgesic; Z93.2 Ileostomy status; G89.3 Neoplasm related pain (acute) (chronic); Z98.890 Other specified postprocedural states; N18.9 Chronic kidney disease, unspecified; R63.0 Anorexia; R64 Cachexia; F43.10 Post-traumatic stress disorder, unspecified; F41.9 Anxiety disorder, unspecified; F32.A Depression, unspecified; Z79.899 Other long term (current) drug therapy; M94.1 Relapsing polychondritis; Z88.5 Allergy status to narcotic agent; Z88.8 Allergy status to other drugs, medicaments and biological substances